=== PATIENT | male | born 1950 | race Caucasian/White ===

== ENCOUNTER 2018-08-08 22:05 | Emergency (ER) | payer OTHER ==
[~2018-08-08] VITALS: Ht 172.7 cm; Wt 85.0 kg
[2018-08-08 22:10] VITALS: Ht 172.7 cm; Wt 85.0 kg
[2018-08-09] MEDS ORDERED: METHOCARBAMOL 750 MG TAB PO ONE (01:00)
[2018-08-09] MEDS ORDERED: ACETAMINOPHEN 325 MG TAB PO ONE (01:00)
[2018-08-09] MEDS ORDERED: METH750T93 PO (02:53)
[2018-08-09] MEDS ORDERED: ACET-141 PO (02:53)
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
[2018-08-09 03:27] VITALS: BP 137/92; PULSE 65; RESP 18
== END 2018-08-09 03:29 | disposition home or self-care (01) ==
LOC: EDSEX 22:05 → FTE 22:05
DX: M54.2 Cervicalgia (principal); E11.9 Type 2 diabetes mellitus without complications
CPT/HCPCS: 70450; 72125